=== PATIENT | female | born 1975 | race Caucasian/White ===

== ENCOUNTER → 2023-10-03 08:51 | Outpatient (REF) | payer OTHER, SELFPAY | LOC: HWWDC 08:51 | PROVIDERS: ATTENDING PHYSICIAN Family Medicine | DX: Z12.31 Encounter for screening mammogram for malignant neoplasm of breast (principal) | CPT/HCPCS: 77063; 77067 ==

== ENCOUNTER → 2024-03-20 10:59 | Outpatient (REF) | payer OTHER, SELFPAY | LOC: WDC 10:59 | PROVIDERS: ATTENDING PHYSICIAN Family Medicine | DX: R92.2 Inconclusive mammogram (principal) | CPT/HCPCS: 76641 ==

== ENCOUNTER → 2024-10-09 12:49 | Outpatient (REF) | payer OTHER, SELFPAY | LOC: WDC 12:49 | PROVIDERS: ATTENDING PHYSICIAN Family Medicine | DX: Z12.31 Encounter for screening mammogram for malignant neoplasm of breast (principal) | CPT/HCPCS: 77063; 77067 ==

== ENCOUNTER → 2025-03-30 12:58 | Outpatient (REF) | payer OTHER, SELFPAY | LOC: WDC 12:58 | PROVIDERS: ATTENDING PHYSICIAN Family Medicine | DX: R92.30 Dense breasts, unspecified (principal) | CPT/HCPCS: 76641 ==